=== PATIENT | male | born 1995 | race Caucasian/White ===

== ENCOUNTER → 2019-01-07 11:43 | Outpatient (CLI) | payer OTHER, SELFPAY ==
--- NOTE | 2019-01-07 11:50 | RAD_ITS ---
STUDY: X-RAY - RIGHT KNEE REASON FOR EXAM: Male, 23 years old. Knee pain. TECHNIQUE: 4 view(s) of the knee. COMPARISON: None. FINDINGS: Normal visualized distal femur. Normal visualized proximal tibia and fibula. Normal proximal tibiofibular articulation. Normal medial femorotibial compartment. Normal lateral femorotibial compartment. Normal patellofemoral articulation. There is lateral patellar tilt. There is a curvilinear bony density adjacent to the medial patella that appears to be associated with a small defect within the underlying patella along the medial and inferior pole. The soft tissue structures are unremarkable. RAD/Knee 4 or More Views IMPRESSION: Findings concerning for a patella avulsion fracture. Lateral patellar tilt. Electronically Signed: Yumiko Benjamin MD at 17:23 EDT Tel , Service support ,
== END ==
PROVIDERS: Family Provider Family Medicine; PCP Family Medicine; Referring Provider Family Medicine; Visit Provider Family Medicine
DX: M25.561 Pain in right knee (principal)
CPT/HCPCS: 73564

== ENCOUNTER → 2019-01-10 06:43 | Outpatient (CLI) | payer OTHER, SELFPAY ==
--- NOTE | 2019-01-10 06:48 | CT_ITS ---
STUDY: CT RIGHT KNEE WITHOUT CONTRAST REASON FOR EXAM: Male, 23 years old. RIGHT KNEE PAIN FOLLOWING INJURY DURING VOLLEYBALL 5 DAYS AG0 RADIATION DOSAGE (If Supplied By Facility): CTDIvol = ( 22.46 ) mGy, DLP = ( 624.23 ) mGycm TECHNIQUE: Transaxial CT imaging of the knee was performed. Coronal and sagittal images were reformatted. Individualized dose optimization techniques were used for this CT. COMPARISON: None. FINDINGS: Normal medial femoral condyle and medial tibial plateau. There is preservation of the articular joint space of the medial knee compartment. There is irregularity of the posterior cortex of the distal metaphysis of the femur which follow-up in 6 months is recommended to exclude a neoplastic process such as Parosteal osteosarcoma. Normal lateral femoral condyle and lateral tibial plateau. There is preservation of the articular joint space of the lateral knee compartment. Normal proximal tibiofibular articulation. There is no joint effusion. The quadriceps tendon is grossly normal. The patellar tendon is grossly normal. Normal Hoffa's fat pad. There is fat stranding adjacent to the medial patellar retinaculum and medial patellofemoral ligament suggesting partial tear or sprain. CT/Extremity Lower without Contra IMPRESSION: There is irregularity of the posterior cortex of the distal metaphysis of the femur which follow-up CT scan in 6 months is recommended to exclude a neoplastic process such as Parosteal osteosarcoma. Partial tear or strain of the medial patellar retinaculum and medial patellofemoral ligament. Electronically Signed: Yelitza Lau, at 8:26 EDT Tel , Service support ,
== END ==
PROVIDERS: Family Provider Family Medicine; PCP Family Medicine; Referring Provider Family Medicine; Visit Provider Family Medicine
DX: M25.561 Pain in right knee (principal)
CPT/HCPCS: 73700

== ENCOUNTER 2019-02-13 12:30 | Outpatient (RCR) | payer OTHER, SELFPAY ==
--- NOTE | 2019-01-15 13:30 | HP.PTEVAL_ITS ---
Patient's Visit Information JUDSON MONCADA is a 23 year old M referred to Physical Therapy by Deon Salgado MD with a diagnosis of PAETLLA DISLOCATION RIGHT. Date of Evaluation: 01/15/19 Physical Therapist: Tarun Cope PT, Cert MDT, OCS - Visit Plan Frequency: 2x /Week Duration: 6 Weeks Plan: PT INTERVENTIONS ROM,GRADED PRE'S VMO/QUADS/HIP CLOSED CHAIN,PROPRIOCEPTION ,MODALTIES - Subjective Findings: This 23y/o male presnets to physical therapy with patellar dislocation right knee. Patient was playing volleyball injuried knee falling hit knee caused immediated pain . Patient had edema. Seen DR chloe HINES showed sprain possible tear of patellafemoral ligaments. Patient pain worse with walking 5 mins ,extended walking. Unable to squat kneel,slow with stairs. Patient sleeping okay at night. Denies parathesia/tingling.pain affects ADLS' and job demands . Patient knee pain affects QOL.Patient does LCL tear 3 years ago. SOCAIL: single. VOCATION: [employer] - Pain Right Knee Pain Intensity (Out of 10): 7 Pain Intensity Range: 10 - Objective POSTURE:mild knee valgus,patella lateral tilt. GAIT: mild antalgic gait right side with decrease stance. PALAPTION: tender medial patellafemoral ligaments. AROM: 5 -100 degrees supine flexion pain. QUAD SET : POOR. SLR: unable to do SLR. MMT:quad 3+/5,hams 4-/5,hip abd 4-/5,hip add 3/5,hip extesnion 3+/5. proprioception: poor. STAIRS: one step at tome - Special Tests R Knee Antonino - Meniscus: Negative R Knee Ankit - ACL: Negative R Knee Anterior Drawer - ACL: Negative R Knee Posterior Drawer - PCL: Negative R Knee Posterior Sag - PCL: Negative R Knee Valgus - MCL: Negative R Knee Patellar Apprehension - PFS: Positive R Knee Patellar Grind - PFS: Negative - Goals Goal 1:: Independant with HEP . Goal Time Frame: 4-6 Weeks Goal 2:: Patient to decrease knee pain by 50 % > to improve function. Goal Time Frame: 4-6 Weeks Goal 3:: Patient to improve AROM for knee 0-130 supine knee flexion to improve function. Goal Time Frame: 4-6 Weeks Goal 4:: Patient to increase strength quads/hams 4/5 to improve function with gait Goal Time Frame: 4-6 Weeks Goal 5:: Normalized gait pattern Goal Time Frame: 4-6 Weeks Goal 6:: Improve LFES score by 10-15 points to improve QOL. Goal Time Frame: 4-6 Weeks - Rehabilitation Potential Physical Therapy Diagnosis: This patient has right knee pin with patella subluxation with weakness of quads/WMO ,pain ,poor ROM ,antalgic gait and proprioception impairs ADL's and job demnads thus benifit from skilled PT Rehabilitation Potential: Good - Anticipated Interventions Patient/Client Instruction: Educate patient on: Condition, Plan of Care For the Purpose of:: To decrease pain, To increase ROM, To improve muscle performance and motor function, To improve ability to perform ADL's, To increase tolerance to activity/condition/position, To improve ability of physical actions for home/community/work/leisure, To improve health of tissue, To decrease soft tissue restriction, To increase flexibility/ROM, To reduce risk of recurrence, To improve ability to perform tasks related to life management Therapeutic Exercise to Include: Strength training, Endurance training, Balance training, Flexibilty training, Passive ROM, Active ROM For the Purpose of:: To decrease pain, To increase ROM, To improve muscle performance and motor function, To increase tolerance to activity/co ndition/position, To improve ability of physical actions for home/community/work/leisure, To decrease soft tissue restriction, To increase flexibility/ROM, To improve endurance, To improve balance, To improve ability to perform tasks related to life management TENS: Yes IF ES: Yes Cryotherapy (ice pack, ice massage): Yes Thermo therapy (hot pack): Yes For the Purpose of:: To decrease pain, To decrease swelling/inflammation, To increase ROM, To improve health of tissue, To decrease soft tissue restriction Thank you for the opportunity to evaluate your patient. For Medicare and Medicare HMO plans, please review the plan of care and approve it. It will need to be FAXED BACK to us at [phone] for Medicare purposes. For Medicare only, by signing this I certify the plan of care. Please let me know if there are questions or concerns regarding this plan of care. Physician Signature: Date:
--- NOTE | 2019-02-13 13:08 | HP.PTDCSUM ---
HP - PT D/C Summary It has been my pleasure to treat JUDSON MONCADA under orders from Deon Salgado MD, for the diagnosis of PATETLLA DISLOCATION RIGHT for a total of 9 visit(s). Discharge Date: Please see the following information for a summary of their discharge status. - Subjective Subjective: Doing well . No pain ..ready for d/c - Pain Right Knee Pain Intensity (Out of 10): 0 - Overall Improvement % Improvement: 80 - Objective Objective/Function: GAIT: NORMAL CADANCE. PALPATION: UNREMRKABLE. EDEMA: ABSENT. AROM: 0-122 spune knee flexion. MMT: QUADS 4-/5/HAMS 4/5,HIP 4/5 - Goals Goal 1:: Independant with HEP . Goal Progress: Goal Met Goal 2:: Patient to decrease knee pain by 50 % > to improve function. Goal Progress: Goal Met Goal 3:: Patient to improve AROM for knee 0-130 supine knee flexion to improve function. Goal Progress: Goal Met Goal 4:: Patient to increase strength quads/hams 4/5 to improve function with gait Goal Progress: Goal Met Goal 5:: Normalized gait pattern Goal Progress: Goal Met Goal 6:: Improve LFES score by 10-15 points to improve QOL. Goal Progress: Goal Met - Plan Plan: D/C TO HEP - D/C Information If there are questions or concerns regarding this patient's physical therapy, please feel free to call me at [phone]. Thank you for the referral of this patient. Sincerely, Tarun Cope, PT, Cert MDT, OCS
== END 2019-02-13 19:00 | disposition home or self-care (01) ==
LOC: PT 12:30
PROVIDERS: Family Provider Family Medicine; PCP Family Medicine; Referring Provider Family Medicine; Visit Provider Family Medicine
DX: S83.004S Unspecified dislocation of right patella, sequela (principal)
CPT/HCPCS: 97032; 97110; 97161; 97530